=== PATIENT | male | born 1970 | race Caucasian/White ===

== ENCOUNTER 2017-07-29 19:51 | Emergency (ER) | payer OTHER ==
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
[2017-07-29] MEDS ORDERED: NS 1,000 ML IV ONE (20:35)
[2017-07-29] MEDS ORDERED: fentaNYL 100 MCG/2 ML INJ IVP ONE (20:35)
[2017-07-29] MEDS ORDERED: PROPOFOL 200 MG/20 ML VIAL IVP ONE (20:36)
[2017-07-29] MEDS ORDERED: OXYCODONE/APAP 5/325MG PREPACK#4 BTL TAKEHOME ONE (21:16)
[2017-07-29 21:38] VITALS: RESP 16
[2017-07-29 21:40] VITALS: PULSE 69; O2SAT 93
[2017-07-29] MEDS ORDERED: HYDROCOD/APAP 5/325 PREPACK#6 BTL TAKEHOME ONE (21:50)
[2017-07-29 22:16] VITALS: BP 126/79; TEMP 98.6
== END 2017-07-29 22:00 | disposition home or self-care (01) ==
PROC: 0RSKXZZ Reposition Left Shoulder Joint, External Approach (ICD-10-PCS; principal; 2017-07-29)
DX: S43.005A Unspecified dislocation of left shoulder joint, initial encounter (principal); F17.200 Nicotine dependence, unspecified, uncomplicated; E86.9 Volume depletion, unspecified; V00.138A Other skateboard accident, initial encounter; Y93.89 Activity, other specified
CPT/HCPCS: J2704; J3010